=== PATIENT | female | born 1950 | race Caucasian/White ===

== ENCOUNTER 2016-10-12 08:03 | Outpatient (CLI) | payer OTHER, MEDICARE ==
--- NOTE | 2016-10-12 09:30 | DIAGNOSTIC IMAGING REPORT ---
PROCEDURE: US ABDOMEN ULTRASOUND-COMPLETE INDICATION: ABDOMINAL PAIN, initial encounter TECHNIQUE: Sarabia scale and color Doppler sonographic images of the abdomen were obtained. COMPARISON: None. FINDINGS: Liver, spleen, pancreas and gallbladder are normal. Normal CBD, 3 mm. Aorta and IVC are patent. Normal hepatopetal flow. Normal right kidney measures 10.6 cm. Left kidney measures 10 cm with a 1.5 cm simple upper pole cyst. IMPRESSION: 1. 1.5 cm left renal upper pole cyst 2. Otherwise negative abdominal ultrasound
== END 2016-10-12 23:00 ==
LOC: US SRH 08:03
DX: R10.9 Unspecified abdominal pain (principal); N28.1 Cyst of kidney, acquired